=== PATIENT | female | born 1960 | race Two or more races ===

== ENCOUNTER 2017-09-28 10:27 | Outpatient (CLI) | payer OTHER | END 2017-09-28 10:35 | disposition home or self-care (01) | LOC: NUCLEAR 10:27 | DX: R55 Syncope and collapse (principal); I10 Essential (primary) hypertension ==

== ENCOUNTER 2021-07-23 07:10 | Emergency (ER) | payer OTHER ==
[~2021-07-23] VITALS: Ht 160 cm; Wt 92.5 kg
[2021-07-23] MEDS ORDERED: COZAAR50 MG PO (07:16)
[2021-07-23] MEDS ORDERED: SYNTHROID150 MCG PO (07:16)
[2021-07-23] MEDS ORDERED: KETO10TA2 PO (11:23)
[2021-07-23] MEDS ORDERED: TAMS0.4C PO (11:23)
== END 2021-07-23 11:35 | disposition home or self-care (01) ==
LOC: ER 07:10
DX: R10.9 Unspecified abdominal pain (principal); N13.2 Hydronephrosis with renal and ureteral calculous obstruction

== ENCOUNTER 2022-10-16 05:40 | Day surgery (SDC) | payer OTHER ==
[~2022-10-16] VITALS: Ht 160 cm; Wt 90.3 kg
[~2022-10-16 05:40] MED LIST: COZAAR50 MG PO; KETO10TA2 PO; SYNTHROID150 MCG PO; TAMS0.4C PO
[2022-10-16] MEDS ORDERED: NAPR500T14 PO (09:54)
[2022-10-16] MEDS ORDERED: MORGIDOX100 MG PO (09:54)
== END 2022-10-16 12:40 | disposition home or self-care (01) ==
LOC: CIR.AMB 05:40
PROVIDERS: ATTEND Obstetrics & Gynecology
DX: N84.0 Polyp of corpus uteri (principal); D25.0 Submucous leiomyoma of uterus; Z20.822 Contact with and (suspected) exposure to COVID-19; N92.5 Other specified irregular menstruation; I10 Essential (primary) hypertension; E03.9 Hypothyroidism, unspecified; Z87.891 Personal history of nicotine dependence

== ENCOUNTER 2023-08-25 07:21 | Outpatient (CLI) | payer OTHER ==
[~2023-08-25 07:21] MED LIST changes: +MORGIDOX100 MG PO; +NAPR500T14 PO
== END 2023-08-25 07:34 | disposition home or self-care (01) ==
LOC: SONOGRAMA 07:21
PROVIDERS: ATTEND Internal Medicine Sports Medicine
DX: R10.11 Right upper quadrant pain (principal)

== ENCOUNTER 2023-11-18 09:50 | Outpatient (CLI) | payer OTHER | END 2023-11-18 10:01 | disposition home or self-care (01) | LOC: SONOGRAMA 09:50 | PROVIDERS: ATTEND Physical Medicine & Rehabilitation Sports Medicine | DX: M75.52 Bursitis of left shoulder (principal); M25.512 Pain in left shoulder ==

== ENCOUNTER → 2023-11-25 | Emergency (ER) | payer OTHER ==
[~2023-11-25] VITALS: Ht 160 cm; Wt 98.4 kg
== END | disposition left against medical advice (07) ==
LOC: ER 11:33
DX: Z53.21 Procedure and treatment not carried out due to patient leaving prior to being seen by health care provider (principal)